=== PATIENT | female | born 1990 | race Caucasian/White ===

== ENCOUNTER 2018-02-26 06:11 | Inpatient (IN) ==
[2018-02-26] MEDS ORDERED: Sod Chloride 0.9% Inj 1,000 ML IV.CONT PRN (07:41)
[2018-02-26] MEDS ORDERED: fentaNYL Citrate Inj 100 MCG/2 ML Ampul IV.PUSH PRN (07:41)
[2018-02-26] MEDS ORDERED: Sodium Chlor 0.9% Inj 500 ML IV.SIG PRN (07:41)
[2018-02-26] MEDS ORDERED: Naloxone Inj 0.4 MG/ML Vial IV.PUSH PRN (07:41)
[2018-02-26] MEDS ORDERED: Citric Acid/Sodium Citrate Liq 30 ML UDC PO SCH (07:45)
--- NOTE | 2018-02-26 07:53 | P.HPOB ---
History of Present Illness Primary Care Physician: UNKNOWN Chief Complaint: 40 4/7 week with unfavorable peoples History of Present Illness: 27 yo mwf at 40 4/7 weeks asking to be induced. Decreased movement but 8/8 BPP profile yesterday. No leaking, bleeding, UCs. No symptoms of pre eclampsia. No history HTN, PTL, GDM. RH negative. Weeks Gestation:: 41 Para: 0 : 1 - Inpatient Certification I certify that the inpatient services were ordered in accordance with Medicare regulations governing the order. This includes certification that hospital inpatient services are reasonable and necessary and in the case of services not specified as inpatient-only under 42 CFR 419.22(n), that they are appropriately provided as inpatient services in accordance to with the 2-midnight benchmark under 43 CFR 412.3(e) Estimated Total Length of Stay (Days): 5 Plans for Post Hospital Care: Home Review of Systems All other systems reviewed negative except as stated in HPI PMFSH - Tobacco History Smoking Status: Never smoker - Alcohol History How Often Do You Have a Drink Containing Alcohol: Never - Travel History History of Recent Travel: No Medications and Allergies Active Medications: Active Medications Citric Acid/Sodium Citrate (Sodium Citrate/Citric Acid Liq) 30 ml PO [employer] [facility] Stop: 03/02/18 07:44 Dinoprostone (Cervidil Vag Insert) 10 mg VAGINAL ONCE ONE Stop: 02/26/18 07:42 Fentanyl Citrate (Fentanyl Inj) 50 mcg IV.PUSH Q1H PRN PRN Reason: Pain Scale 3 - 5 Fentanyl Citrate (Fentanyl Inj) 100 mcg IV.PUSH Q1H PRN PRN Reason: PAIN SCALE 6 TO 10 Lactated Ringer's (Lr 1000 Ml Inj) 1,000 mls @ 125 mls/hr IV.CONT .Q8H [facility] Lactated Ringer's (Lr 1000 Ml Inj) 1,000 mls @ 3,000 mls/hr IV.SIG UNSCH PRN PRN Reason: compromise or epidural Sodium Chloride (Ns Inj) 500 mls @ 1,000 mls/hr IV.SIG UNSCH PRN PRN Reason: SEE LABEL COMMENTS Sodium Chloride (Ns Inj) 1,000 mls @ 100 mls/hr IV.CONT .Q10H PRN PRN Reason: SEE LABEL COMMENTS Oxytocin (Pitocin 30 Units/Ns 500 Ml Premix) 30 units in 500 mls @ 999 mls/hr IV.SIG BOLUS ONE Stop: 02/26/18 08:11 Penicillin G Potassium 5,000, (000 unit/ Sodium Chloride) 100 mls @ 200 mls/hr IV.SIG ONCE ONE Stop: 02/26/18 08:10 Penicillin G Potassium 2,500, (000 unit/ Sodium Chloride) 100 mls @ 200 mls/hr IV.SIG Q4H THANH Lidocaine HCl (Xylocaine 1% Inj) 0.1 ml I-DERMAL PRN PRN PRN Reason: For IV start Stop: 03/01/18 07:40 Lidocaine HCl (Xylocaine 1% Inj) 10 ml INFILTRATN PRN PRN PRN Reason: For episiotomy repair Stop: 02/28/18 07:40 Mineral Oil (Muri-Lube Oil) 10 ml TOPICAL PRN PRN PRN Reason: PRN perineal massage Miscellaneous Information ([facility]) 1 each OTHER ONCE ONE Stop: 02/26/18 07:42 Naloxone HCl (Narcan Inj) 0.1 mg IV.PUSH Q2M PRN PRN Reason: for opiate reversal Sodium Chloride (Ns Flush) 2 ml IV.FLUSH BID THANH Sodium Chloride (Ns Flush) 2 ml IV.FLUSH PRN PRN PRN Reason: FLUSH AFTER USING IV ACCESS Allergies Allergy/AdvReac Type Severity Reaction Status Date / Time No Known Drug Allergies Allergy none Verified 02/26/18 07:13 Home Medications Medication Instructions Recorded Confirmed Type [id number]-FA DAILY 02/26/18 History [] Exam Vital signs: Vital Signs 02/26/18 06:48 02/26/18 07:15 Pulse Rate 76 Respiratory Rate 18 Blood Pressure 110/78 Intake & Output 02/25/18 02/26/18 02/26/18 18:59 06:59 18:59 Weight 77.564 kg - Constitutional no acute distress - Routine HEENT Exam Head: Present: normocephalic Eye: Present: PERRL - Routine Respiratory Exam Present: CTA bilaterally - Routine Cardiovascular Exam Present: RRR - Routine Abdominal Exam Present: soft, normoactive bowel sounds - Additional findings Additional findings: cervix long closed posterior soft EFW 8 pounds pelvis clinically adequate Caprini VTE Risk Assessment Caprini VTE Risk Assessment: No/Low Risk (score <= 1) Caprini Risk Assessment Model: Point Value = 1 Point Value = 2 Point Value = 3 Point Value = 5 Age 41-60 Minor surgery BMI > 25 kg/m2 Swollen legs Varicose veins or History of unexplained or recurrent spontaneous Oral contraceptives or hormone replacement Sepsis (< 1 month) Serious lung disease, including pneumonia (< 1 month) Abnormal pulmonary function Acute myocardial infarction Congestive heart failure (< 1 month) History of inflammatory bowel disease Medical patient at bed rest Age 61-74 Arthroscopic surgery Major open surgery (> 45 min) Laparoscopic surgery (> 45 min) Malignancy Confined to bed (> 72 hours) Immobilizing plaster cast Central venous access Age >= 75 History of VTE Family history of VTE Factor V Leiden Prothrombin [id number] Lupus anticoagulant Anticardiolipin antibodies Elevated serum homocysteine Heparin-induced thrombocytopenia Other congenital or acquired thrombophilia Stroke (< 1 month) Elective arthroplasty Hip, pelvis, or leg fracture Acute spinal cord injury (< 1 month) Prophylaxis Regimen: Total Risk Factor Score Risk Level Prophylaxis Regimen 0-1 Low Early ambulation 2 Moderate Order ONE of the following: *Sequential Compression Device (SCD) *Heparin 5000 units SQ BID 3-4 Higher Order ONE of the following medications: *Heparin 5000 units SQ TID *Enoxaparin/Lovenox 40 mg SQ daily (WT < 150 kg, CrCl > 30 mL/min) *Enoxaparin/Lovenox 30 mg SQ daily (WT < 150 kg, CrCl > 10-29 mL/min) *Enoxaparin/Lovenox 30 mg SQ BID (WT < 150 kg, CrCl > 30 mL/min) AND/OR *Sequential Compression Device (SCD) 5 or more Highest Order ONE of the following medications: *Heparin 5000 units SQ TID (Preferred with Epidurals) *Enoxaparin/Lovenox 40 mg SQ daily (WT < 150 kg, CrCl > 30 mL/min) *Enoxaparin/Lovenox 30 mg SQ daily (WT < 150 kg, CrCl > 10-29 mL/min) *Enoxaparin/Lovenox 30 mg SQ BID (WT < 150 kg, CrCl > 30 mL/min) AND *Sequential Compression Device (SCD) Assessment and Plan - Diagnosis (1) with 41 completed weeks gestation Code(s): Z3A.41 - 41 weeks gestation of Status: Acute - Plan Begin cervidil encourage activty GBS prophylaxis regular diet anticipate
[2018-02-26 08:09] LABS: Baso % (Auto) 0.2 % (0.0-2.0); Eos # (Auto) 0.1 th/mm3 (0.0-0.4); Eos % (Auto) 1.2 % (0.0-4.0); Hematocrit 33.9 % (35.0-46.0); Hemoglobin 11.3 gm/dL (11.6-15.3); Lymph # (Auto) 2.2 th/mm3 (1.0-4.8); Lymph % (Auto) 20.1 % (9.0-44.0); Mean Corpuscular HGB Conc 33.3 % (32.0-36.0); Mean Corpuscular Volume 87.1 fL (80.0-100.0); Mean Platelet Volume 8.8 fL (7.0-11.0); Mono # (Auto) 0.8 th/mm3 (0.0-0.9); Mono % (Auto) 7.3 % (0.0-8.0); Neut # (Auto) 7.9 th/mm3 (1.8-7.7); Neut % (Auto) 71.2 % (16.0-70.0); Platelet Count 226 th/mm3 (150-450); Red Blood Count 3.89 mil/mm3 (4.00-5.30); Red Cell Distribution Width 14.1 % (11.6-17.2); White Blood Count 11.1 th/mm3 (4.0-11.0)
[2018-02-26] MEDS ORDERED: Oxytocin 30 Units/500ml Premix 30 UNITS/500 ML BAG IV.SIG ONE (08:15)
[2018-02-26 08:22] LABS: Amphetamine Urine With Conf Neg (Neg); Benzodiazepine Urine With Conf Neg (Neg)
[2018-02-26 08:27] LABS: Bacteria,Urine Few /hpf; Bilirubin,Urine Negative (Negative); Color,Urine Yellow (Yellw/Straw); Glucose,Urine (UA) Negative (Negative); Leukocyte Esterase,Urine Moderate (Negative); Mucus,Urine Few /lpf (Occasional); Nitrite,Urine Negative (Negative); Specific Gravity,Urine 1.015 (1.002-1.035); Squamous Epithelial Cell,Urine 23 /hpf (0-5)
[2018-02-26 08:28] LABS: Clarity,Urine Hazy (Clear)
[2018-02-26] MEDS ORDERED: Penicillin G Potassium Inj 5,000,000 UNIT in Sodium Chloride 0.9% Inj 100 ML IV.SIG ONE ×2 (09:00→22:00)
[2018-02-26] MEDS ORDERED: Penicillin G Potassium Inj 2,500,000 UNIT in Sodium Chlor 0.9% Inj 100 ML IV.SIG SCH (13:00)
[2018-02-26] MEDS ORDERED: Oxytocin 30 Units/500ml Premix 30 UNITS/500 ML BAG IV.SIG PRN (17:16)
--- NOTE | 2018-02-26 17:16 | P.OBLABOR ---
Subjective Interval history: comfortable with regular but mild UC with cervidil. heart burn from [employer] Objective Vital Signs: Vital Signs - 8 hr 02/26/18 11:00 02/26/18 13:13 02/26/18 13:14 Temperature 97.7 F Pulse Rate 84 Respiratory Rate 18 18 Blood Pressure 122/80 Objective: 1+/50/-2 AND DEVIATED LEFT membranes sweeped strip reactive Weeks Gestation: 41 Patient Started Active Labor: No Medical Induction of Labor: Yes Assessment and Plan - Diagnosis (1) with 41 completed weeks gestation Code(s): Z3A.41 - 41 weeks gestation of Status: Acute - Plan Begin cervidil encourage activty GBS prophylaxis regular diet anticipate 5PM remove cervidil at 6 shower can eat lightly then pitocin at 9 pm
[2018-02-26] MEDS ORDERED: fentaNYL 2MCG-Bupiv 0.125% Epi 150 ML EPIDURAL ONE (20:53)
[2018-02-26] MEDS: fentaNYL Citrate Inj 100 MCG/2 ML Ampul IV.PUSH PRN ×2 (21:05→22:21)
[2018-02-27] MEDS ORDERED: fentaNYL 2MCG-Bupiv 0.125% Epi 150 ML EPIDURAL PRN (00:38)
[2018-02-27] MEDS ORDERED: fentaNYL Citrate Inj 100 MCG/2 ML Ampul EPIDURAL ONE (00:38)
[2018-02-27] MEDS: Penicillin G Potassium Inj 2,500,000 UNIT in Sodium Chlor 0.9% Inj 100 ML IV.SIG SCH ×3 (02:04→12:58)
[2018-02-27] MEDS ORDERED: Bupivacaine PF 0.25% Inj 10 ML Vial ONE (06:33)
--- NOTE | 2018-02-27 12:46 | P.OBLABOR ---
Subjective Interval history: Doing ok Having some pain with contractions Objective Vital Signs: Vital Signs - 8 hr 02/27/18 04:45 02/27/18 04:55 02/27/18 05:00 Temperature Pulse Rate 65 70 78 Respiratory Rate Blood Pressure 122/75 02/27/18 05:05 02/27/18 05:15 02/27/18 05:20 Temperature Pulse Rate 70 67 68 Respiratory Rate Blood Pressure 02/27/18 05:25 02/27/18 05:30 02/27/18 05:35 Temperature Pulse Rate 93 H 88 89 Respiratory Rate Blood Pressure 122/77 02/27/18 05:40 02/27/18 05:45 02/27/18 05:50 Temperature 98.1 F Pulse Rate 88 92 H 100 H Respiratory Rate Blood Pressure 02/27/18 05:55 02/27/18 06:00 02/27/18 06:05 Temperature Pulse Rate 90 89 93 H Respiratory Rate Blood Pressure 130/89 02/27/18 06:10 02/27/18 06:15 02/27/18 06:20 Temperature Pulse Rate 95 H 100 H 108 H Respiratory Rate Blood Pressure 02/27/18 06:25 02/27/18 06:30 02/27/18 06:35 Temperature Pulse Rate 109 H 93 H 94 H Respiratory Rate Blood Pressure 135/87 02/27/18 06:40 02/27/18 06:45 02/27/18 06:50 Temperature Pulse Rate 87 87 85 Respiratory Rate Blood Pressure 131/90 02/27/18 06:55 02/27/18 07:00 02/27/18 07:15 Temperature Pulse Rate 85 89 91 H Respiratory Rate 16 Blood Pressure 134/87 02/27/18 08:00 02/27/18 08:07 02/27/18 08:10 Temperature Pulse Rate 87 91 H 91 H Respiratory Rate 18 Blood Pressure 122/87 02/27/18 08:35 02/27/18 08:40 02/27/18 08:52 Temperature 98.4 F Pulse Rate 95 H 93 H Respiratory Rate Blood Pressure 122/83 02/27/18 09:05 02/27/18 09:26 02/27/18 09:28 Temperature Pulse Rate 98 H 117 H 109 H Respiratory Rate 18 Blood Pressure 107/81 130/91 H 140/93 H 02/27/18 10:00 02/27/18 10:40 02/27/18 10:45 Temperature Pulse Rate 103 H 107 H 104 H Respiratory Rate 18 Blood Pressure 127/88 136/88 122/73 02/27/18 11:10 02/27/18 11:15 02/27/18 11:25 Temperature Pulse Rate 102 H 105 H 106 H Respiratory Rate Blood Pressure 115/76 119/78 02/27/18 11:45 02/27/18 11:55 02/27/18 12:15 Temperature 99.0 F Pulse Rate 108 H 105 H 99 H Respiratory Rate Blood Pressure 124/93 H 133/92 H Objective: Pelvic Exam: Cervix: [-] Dilatation: [-] Effacement: [-] Station: [-] Presentation: [-] Membranes: [intact or ruptured] Uterine Contractions: [-] FHT's: Category: [-] Baseline: [-] Reactive: [-] Variability: [-] Decels: [-] Assessment and Plan - Plan Labor Cx is now 8/90/vtx Anterior Cx is swollen Will give some benadryl now UCs are a bit close Will back off on the pitocin Hoping for a vaginal delivery Pelvis seems adequate.
[2018-02-27] MEDS ORDERED: Measles/Mumps/Rubella Vaccine Inj 0.5 ML Vial SQ ONE (16:00)
[2018-02-27] MEDS ORDERED: Diphtheria/Tetanus/Pertussis Vaccine Inj 0.5 ML Syringe IM ONE (16:00)
[2018-02-27] MEDS ORDERED: Varicella Vaccine Live 1350 UNITS/0.5 ML Vial SQ ONE (16:00)
--- NOTE | 2018-02-27 16:45 | P.OBDELI ---
Weeks Gestation: 41 Patient Started Active Labor: Yes Active Labor Start Date: 02/27/18 Medical Induction of Labor: Yes (cervidil followed by pitocin) Medical Induction Start Date: 02/26/18 Artificial Rupture of Membrane: No Anesthesia: Epidural Episiotomy: midline Vaginal Delivery: Normal Presentation: Occiput anterior Nuchal Cord: None Delayed Cord Clamping (45 sec): Yes Shoulder Dystocia: Chantel maneuver done Placenta: Spontaneous delivery, Intact, 3 vessel cord Laceration: Episiotomy, 2 deg Repair: Vicryl running : Female Infant Delivery Date: 02/27/18 Weight: 1615 kg score (1 min): 6 score (5 min): 8 Additional Information: Delivery of Evita Mild shoulder dystocia relieved with Chantel Good jolanta reflex. Second degree midline repaired with 3-0 vicryl Vulva is quite swollen and will apply ice
[2018-02-27] MEDS ORDERED: Bisacodyl 10 MG Supp RECTAL PRN (16:48)
[2018-02-27] MEDS ORDERED: Benzocaine 20% Top Spray 60 ML Can TOPICAL PRN (16:48)
[2018-02-27] MEDS ORDERED: Naloxone Inj 0.4 MG/ML Vial IV.PUSH PRN (16:48)
[2018-02-27] MEDS ORDERED: Witch Hazel 50%/Glyderin 12.5% 40 Pad Jar RECTAL PRN (16:48)
[2018-02-27] MEDS ORDERED: Zolpidem Tartrate 5 MG Tablet PO PRN (16:48)
[2018-02-27] MEDS ORDERED: Oxytocin 30 Units/500ml Premix 30 UNITS/500 ML BAG ONE (16:52)
[2018-02-27] MEDS ORDERED: Oxytocin 30 Units/500ml Premix 30 UNITS/500 ML BAG IV.CONT SCH (17:00)
[2018-02-27] MEDS: Acetaminophen 325 MG Tablet PO PRN (17:11)
[2018-02-28] MEDS: Acetaminophen 325 MG Tablet PO PRN ×3 (02:55→22:02)
[2018-02-28] MEDS: Prenatal Vit/Ca/Iron/Folic Acid Tablet PO SCH (09:33)
[2018-02-28] MEDS: Senna/Docusate Sodium 8.6/50 MG Tablet PO SCH ×2 (09:33→22:02)
--- NOTE | 2018-02-28 13:52 | P.PNOB ---
Subjective Post day: 1 Interval history: Doing well, Baby is good Pain is well controlled. Bleeding is normal Objective Vital Signs/I&O: Vital Signs 02/27/18 14:10 02/27/18 14:35 02/27/18 15:10 Temperature Pulse Rate 110 H 110 H 119 H Respiratory Rate Blood Pressure 119/74 117/63 133/83 02/27/18 15:40 02/27/18 17:03 02/27/18 17:15 Temperature 98.5 F Pulse Rate 108 H 101 H 101 H Respiratory Rate 16 Blood Pressure 123/76 108/79 125/78 02/27/18 17:47 02/27/18 18:00 02/27/18 20:45 Temperature 98.1 F Pulse Rate 100 H 72 Respiratory Rate 16 18 Blood Pressure 111/95 H 116/85 02/28/18 09:20 Temperature 98.0 F Pulse Rate 86 Respiratory Rate 16 Blood Pressure 101/67 Result Diagrams: 02/26/18 06:45 Objective Remarks: GENERAL: Well-nourished, well-developed patient. CARDIOVASCULAR: Regular rate and rhythm without murmurs, gallops, or rubs. RESPIRATORY: Breath sounds equal bilaterally. No accessory muscle use. ABDOMEN/GI: Abdomen soft, non-tender. Fundus: Firm, non-tender at umbilicus. GENITOURINARY: Light to moderate bleeding. EXTREMITIES: No cyanosis or edema, non-tender, without signs of DVT. Medications and IVs: Active Medications Acetaminophen (Tylenol) 650 mg PO Q4H PRN PRN Reason: PAIN SCALE 1 TO 2 Last Admin: 02/28/18 11:22 Dose: 650 mg Al Hydroxide/Mg Hydroxide (Milk Of Daniel Licharity) 30 ml PO Q12H PRN PRN Reason: Mild Constipation Benzocaine (Americaine 20% [place]) 1 spray TOPICAL Q4H PRN PRN Reason: For Perineum Discomfort Last Admin: 02/27/18 20:39 Dose: 1 spray Bisacodyl (Dulcolax Supp) 10 mg RECTAL DAILY PRN PRN Reason: SEVERE CONSITIPATION Penicillin G Potassium 2,500, (000 unit/ Sodium Chloride) 100 mls @ 200 mls/hr IV.SIG Q4H THANH Last Admin: 02/27/18 12:58 Dose: 100 mls/hr Fentanyl/Bupivacaine/Sodium Chlor (Fentanyl 2 Mcg-Bupiv 0.125% Epi) 150 mls @ 10 mls/hr EPIDURAL PRN PRN PRN Reason: for Labor Pain Last Admin: 02/27/18 00:47 Dose: 10 mls/hr Ibuprofen (Motrin) 800 mg PO Q8H PRN PRN Reason: For cramping Last Admin: 02/28/18 12:39 Dose: 800 mg Lactulose (Lactulose Liq) 30 ml PO DAILY PRN PRN Reason: SEVERE CONSITIPATION Naloxone HCl (Narcan Inj) 0.1 mg IV.PUSH Q2M PRN PRN Reason: for opiate reversal Ondansetron HCl (Zofran Odt) 4 mg PO Q6H PRN PRN Reason: NAUSEA OR VOMITING Oxycodone/Acetaminophen (Percocet 5/325 Mg) 1 tab PO Q4H PRN PRN Reason: PAIN SCALE 3 TO 5 Vit/Calcium/Iron/Folic Ac (Stuartnatal Plus 3) 1 tab PO DAILY [facility] Last Admin: 02/28/18 09:33 Dose: 1 tab Senna/Docusate Sodium (Kait-Colace) 1 tab PO BID [facility] Last Admin: 02/28/18 09:33 Dose: 1 tab Sennosides (Senokot) 17.2 mg PO Q12H PRN PRN Reason: Moderate Constipation Sodium Chloride (Ns Flush) 2 ml IV.FLUSH BID [facility] Sodium Chloride (Ns Flush) 2 ml IV.FLUSH PRN PRN PRN Reason: FLUSH AFTER USING IV ACCESS Witch Corinne/Glycerin (Tucks Pads) 1 applicatio RECTAL QID PRN PRN Reason: HEMORRHOIDS Last Admin: 02/27/18 20:40 Dose: 1 applicatio Zolpidem Tartrate (Ambien) 5 mg PO HS PRN PRN Reason: SLEEP Assessment and Plan - Plan PPD#1 Doing well Routine care.
--- NOTE | 2018-03-01 07:37 | P.PNOB ---
Subjective Post day: 2 Interval history: no complaints, breast and bottlefeeding Objective Vital Signs/I&O: Vital Signs 02/28/18 09:20 Temperature 98.0 F Pulse Rate 86 Respiratory Rate 16 Blood Pressure 101/67 Result Diagrams: 02/26/18 06:45 Objective Remarks: GENERAL: Well-nourished, well-developed patient. CARDIOVASCULAR: Regular rate and rhythm without murmurs, gallops, or rubs. RESPIRATORY: Breath sounds equal bilaterally. No accessory muscle use. ABDOMEN/GI: Abdomen soft, non-tender. Fundus: Firm, non-tender at umbilicus. GENITOURINARY: Light to moderate bleeding. EXTREMITIES: No cyanosis or edema, non-tender, without signs of DVT. Medications and IVs: Active Medications Acetaminophen (Tylenol) 650 mg PO Q4H PRN PRN Reason: PAIN SCALE 1 TO 2 Last Admin: 02/28/18 22:02 Dose: 650 mg Al Hydroxide/Mg Hydroxide (Milk Of Magnesia Liq) 30 ml PO Q12H PRN PRN Reason: Mild Constipation Benzocaine (Americaine 20% [place]) 1 spray TOPICAL Q4H PRN PRN Reason: For Perineum Discomfort Last Admin: 02/27/18 20:39 Dose: 1 spray Bisacodyl (Dulcolax Supp) 10 mg RECTAL DAILY PRN PRN Reason: SEVERE CONSITIPATION Penicillin G Potassium 2,500, (000 unit/ Sodium Chloride) 100 mls @ 200 mls/hr IV.SIG Q4H THANH Last Admin: 02/27/18 12:58 Dose: 100 mls/hr Fentanyl/Bupivacaine/Sodium Chlor (Fentanyl 2 Mcg-Bupiv 0.125% Epi) 150 mls @ 10 mls/hr EPIDURAL PRN PRN PRN Reason: for Labor Pain Last Admin: 02/27/18 00:47 Dose: 10 mls/hr Ibuprofen (Motrin) 800 mg PO Q8H PRN PRN Reason: For cramping Last Admin: 02/28/18 22:02 Dose: 800 mg Lactulose (Lactulose Liq) 30 ml PO DAILY PRN PRN Reason: SEVERE CONSITIPATION Naloxone HCl (Narcan Inj) 0.1 mg IV.PUSH Q2M PRN PRN Reason: for opiate reversal Ondansetron HCl (Zofran Odt) 4 mg PO Q6H PRN PRN Reason: NAUSEA OR VOMITING Oxycodone/Acetaminophen (Percocet 5/325 Mg) 1 tab PO Q4H PRN PRN Reason: PAIN SCALE 3 TO 5 Vit/Calcium/Iron/Folic Ac (Stuartnatal Plus 3) 1 tab PO DAILY [facility] Last Admin: 02/28/18 09:33 Dose: 1 tab Senna/Docusate Sodium (Kait-Colace) 1 tab PO BID [facility] Last Admin: 02/28/18 22:02 Dose: 1 tab Sennosides (Senokot) 17.2 mg PO Q12H PRN PRN Reason: Moderate Constipation Sodium Chloride (Ns Flush) 2 ml IV.FLUSH BID THANH Sodium Chloride (Ns Flush) 2 ml IV.FLUSH PRN PRN PRN Reason: FLUSH AFTER USING IV ACCESS Witch Corinne/Glycerin (Tucks Pads) 1 applicatio RECTAL QID PRN PRN Reason: HEMORRHOIDS Last Admin: 02/27/18 20:40 Dose: 1 applicatio Zolpidem Tartrate (Ambien) 5 mg PO HS PRN PRN Reason: SLEEP Assessment and Plan - Diagnosis (1) with 41 completed weeks gestation Code(s): Z3A.41 - 41 weeks gestation of Status: Acute (2) Vaginal delivery Code(s): O80 - Encounter for full-term uncomplicated delivery Status: Acute Plan: s/p PPD #2 doing well d/c home, rto 2 wks - Plan PPD#2 Doing well Routine care. Discharge Planning: today - Attending Attestation pt seen by me
[2018-03-01] MEDS: Senna/Docusate Sodium 8.6/50 MG Tablet PO SCH (09:30)
[2018-03-01] MEDS: Prenatal Vit/Ca/Iron/Folic Acid Tablet PO SCH (09:30)
[2018-03-01] MEDS: Acetaminophen 325 MG Tablet PO PRN (10:32)
== END 2018-03-01 16:08 | disposition home or self-care (01) ==
LOC: H2E 06:11 → H1EA 02-27 20:33
PROVIDERS: ADMIT Obstetrics & Gynecology; ATTEND Obstetrics & Gynecology
DX: O36.8130 Decreased fetal movements, third trimester, not applicable or unspecified; O66.0 Obstructed labor due to shoulder dystocia; Z37.0 Single live birth; O48.0 Post-term pregnancy; Z3A.41 41 weeks gestation of pregnancy